=== PATIENT | female | born 1970 | race Caucasian/White ===

== ENCOUNTER 2016-07-16 17:49 | Inpatient (IN) | payer BC ==
[~2016-07-16] VITALS: Ht 170.2 cm; Wt 70.5 kg
--- NOTE | ~2016-07-16 | CATH ---
Cardiac Diagnostic Report Demographics Patient Name FLORIN ARGUETA Gender Female ELDER Date of 1970 Age 46 year(s) Patient Number [id number] Date of Study 07/17/2016 Visit Number [id number] Room Number 420 Corporate ID Ht 170.18 cm Wt 70.31 kg Accession Number [id number] BSA 1.81 m kg/m Referring Víctor Paredes Primary Physician Physician MD [place] Performing Fabio GARCIA Secondary Physician Physician [place] Diagnostic Fabio GARCIA Assisting Physician Physician [place] Interventional Fabio GARCIA Physician Printing Manager Physician Guanakito Findings and Conclusions Diagnostic Findings and Conclusion Non-obstructive coronary artery disease. Diagnostic Recommendations Medical management and risk factor modification. Procedure Description The patient was brought to the diagnostic cardiac catheterization laboratory in the fasting, non-sedated state. Informed consent was obtained in the written and verbal form after the risks and benefits were explained. The patient had no further questions and agreed to proceed. The planned puncture-incision site(s) were clipped and prepped with ChloraPrep and draped in the usual sterile manner. Conscious sedation, supplemental oxygen, and pain control medications were delivered by a registered nurse under physician guidance. Surface ECG rhythm, blood pressure measurement, and pulse oximetry were monitored throughout the procedure. Arterial access. The right radial access site was infiltrated with lidocaine. The vessel was entered with the Seldinger technique. A 6F sheath was advanced into the vessel and used for catheter placement. Selective left coronary angiography. A TIG catheter was advanced into the left coronary vessel ostium under Fluoroscopic guidance. Contrast was injected by hand. Images were obtained in multiple projections. Selective right coronary angiography. A TIG catheter was advanced into the right coronary vessel ostium under fluoroscopic guidance. Contrast was injected by hand. Images were obtained in multiple projections. Left heart catheterization. An angled pigtail catheter was advanced across the aortic valve to the left ventricle under fluoroscopic guidance. Resting hemodynamics were obtained. Hemostasis: The sheath was removed and a TR Band was placed. Hemostasis was achieved. The patient was transferred to a regular nursing floor via cart accompanied by a nurse. The patient left the laboratory in stable condition. Procedure Procedure Type Diagnostic procedure:Angiography:, Coronary Angios w/C Indications: Non-ST elevation SD, Hypertension and Tobacco use-current. The procedure was explained in detail to the patient. Risks, complications and alternative treatments were reviewed. Written consent was obtained. Medications Reviewed with Patient prior to Procedure. Complications: No Complication. Angiographic Findings Dominance: Right Cardiac Arteries and Lesion Findings LMCA: Normal (0% Stenosis). LAD: Abnormal. Lesion on Prox LAD: 10% stenosis . Lesion on Mid LAD: 20% stenosis . LCx: Normal (0% Stenosis). RCA: Normal (0% Stenosis). Coronary Tree Procedure Data Procedure Date Date: 07/17/2016Start: 01:15 PMEnd: 01:41 PM Entry Locations - Percutaneous access was performed through the Right Radial artery (Primary location). A 6 Fr sheath was inserted. Hemostasis was successfully obtained using a TR band. Procedure Medications Order and Administration + + +-------+-------+ !Time !Medication !Dosage !Route ! + + +-------+-------+ !07/17/2016 !Versed !1 mg !I.V. ! !01:02 PM ! ! ! ! + + +-------+-------+ !07/17/2016 !Fentanyl !50 mcg !I.V. ! !01:02 PM ! ! ! ! + + +-------+-------+ !07/17/2016 !Sodium Chloride !10 ml !I.V. ! !01:02 PM ! ! ! ! + + +-------+-------+ !07/17/2016 !Versed !1 mg !I.V. ! !01:13 PM ! ! ! ! + + +-------+-------+ 07/17/2016 !Fentanyl !50 mcg !I.V. ! !01:14 PM ! ! ! ! + + +-------+-------+ 07/17/2016 !SF Radial Cocktail: 200mcg Nitro, 2.5 mg ! !I.A. ! !01:17 PM !Verapamil, 5000u Heparin ! ! ! + + +-------+-------+ 07/17/2016 !Plavix (ACC_8) !300 mg !P.O. ! !01:36 PM ! ! ! ! + + +-------+-------+ Devices Used - A6 Fr6F TIG CATHETERwas used for:BilateralCoronary Angios. - A6 FrCATH 6FR PIG 145 110CM CATHETERwas used for:LeftsideLV Pressures. Contrast Material - Isovue 17182 ml Fluoroscopy Time: Diagnostic: 2:12 minutes. Total: 2:12 minutes. Fluoroscopy Dose: Diagnostic: 188 mGy. Total: 188 mGy. Estimated Blood Loss: 6 ml. Medical History Allergies - Codiene. - Other:(lortab). Risk Factors The patient risk factors include:treated hypertension, last creatinine: 1 mg/dl, creatinine clearance: 78.02 ml/min and Current/Recent(w/in 1 year) tobacco use. Admission Data Admission Date: 07/16/2016 Admission Time: 05:49 PM Insurance Payors: Private health insurance. Clinical Evaluation Leading to Procedure Diagnosed on 07/16/2016 06:40 PM. - The patient's CAD presentation was assessed as: Non-STEMI. Hemodynamics Condition: Rest O2 Consumption: Estimated: 174.48Heart Rate: 62 bpm Pressures (mmHg) +-----+ + !Site !Pressure ! +-----+ + !AO !84/54 (70) ! +-----+ + !LV !90/2 ,8 ! +-----+ + !AO !101/65 (83) ! +-----+ + !LV !91/2 ,7 ! +-----+ + Valve Gradients and Areas + +---------+---------+---------+ +---------+ + !Valve !Peak !Mean !Area !Index !Flow !Source ! + +---------+---------+---------+ +---------+ + !Aortic !0 !0 ! ! ! ! ! + +---------+---------+---------+ +---------+ + !Aortic !0 !0 ! ! ! ! ! + +---------+---------+---------+ +---------+ + Shunts Oxygen Values O2 Capacity 184.96 O2 Consumption 174.48 Discharge Data Discharge Date: 07/17/2016 Hospital Status: Inpatient Signatures
--- NOTE | ~2016-07-16 | FD ---
ADMIT: 07/16/2016 RM/LOC: 420 [facility] MR#: [id number] [address] [facility] [address] KENDALL CATHERINE [address] [place] [address] Final Diagnosis SEX: F AGE: 46 : 1970 ADMISSION DATE: 07/16/2016 DISCHARGE DATE: 07/17/2016 Rosie Monsivais RN, scribing for Dr. Richmond Renee. REASON FOR ADMISSION: Non-ST elevated SD. PROCEDURES PERFORMED: 1. On 07/17/[address] Guanakito Mccarthy, left heart catheterization with selective coronary angiography. 2. Echocardiogram on 07/17/2016, ejection fraction 55% with focal apical hypokinesis. FINAL DIAGNOSES: 1. Non-ST elevated myocardial infarction. 2. Tobacco use. 3. Hypertension. 4. Anxiety. 5. Nonobstructive coronary disease. Rosie Monsivais RN / Richmond Renee MD / modl JOB #: [id number] CC: Richmond Renee MD, Attending Physician Julius Beltran MD, Family Physician
--- NOTE | ~2016-07-16 | ECH ---
Transthoracic Echocardiography Report (TTE) Demographics Patient Name KENDALL CATHERINE Date of Study 07/17/2016 ELDER Patient Number [id number] Visit Number [id number] Date of 1970 Room Number 420 Gender Female Number Age 46 year(s) Referring Víctor Paredes MD College Instructor Darline Brock [facility] Physician Physician Interpreting Víctor Paredes Lunchroom Aide Physician MD Supervising Ordering Víctor Paredes MD/MLP Physician Nurse Stress Alcohol Rubber Conclusions Summary Technically good exam. The estimated left ventricular ejection fraction is 55%. Focal apical hypokinesis. Mild prolapse of the anterior mitral valve leaflet(s). Mild posteriorly directed mitral regurgitation by color Doppler. Procedure Type of Study TTE procedure:Echo Complete SF. Procedure Date Date: 07/17/2016 Start: 08:28 AM Technical Quality: Good visualization Indications:Chest pain and Hypertension. Additional Indications:NSTEMI Appropriate Use Criteria: 9 Height: 67 inches Weight: 155 pounds BSA: 1.81 m Rhythm: NSR HR: 63 bpm BP: 115/72 mmHg Allergies - Codiene. - Other:(lortab). M-Mode/2D Measurements LV Diastolic Dimension: 4.84 cm LV Systolic Dimension: 2.77 cm LV Septum Diastolic: 0.83 cm LV PW Diastolic: 0.78 cm AO Root Dimension: 3.27 cm Cardiac Output: 4.64 l/min LA Dimension: 2.79 cm Cardiac Index: 2.56 l/min*m RV Diastolic Dimension: 3.38 cm LA volume index: 29 ml/m LVOT: 1.98 cm LVOT VTI: 23.91 cm RV Base: 3 cm LV Stroke volume: 73.58 ml RV Mid: 1.7 cm LV Stroke volume index: 40.65 ml/m TAPSE: 2.1 cm TDI-S': 12 cm/s Doppler Measurements AV Peak Velocity: 1.3 m/s MV Peak E-Wave: 0.81 m/s AV Peak Gradient: 6.76 mmHg MV Peak A-Wave: 0.5 m/s AV Mean Gradient: 4.11 mmHg MV E/A Ratio: 1.63 LVOT Peak Velocity: 0.99 m/s MV P1/2t: 64.1 msec AV Area (Continuity):2.42 cm MV Deceleration Time: 219.6 msec TR Velocity:2.41 m/s MV Area (PHT): 3.43 cm TR Gradient:23.23 mmHg PV Peak Velocity: 0.72 m/s Estimated RAP:3 mmHg PV Peak Gradient: 2.09 mmHg Estimated RVSP: 26 mmHg Estimated PASP: 26.23 mmHg E' Septal Velocity: 0.1 m/s A' Septal Velocity: 0.09 m/s E' Lateral Velocity: 0.11 m/s A' Lateral Velocity: 0.1 m/s RA Area: 11.55 cm Findings Left Ventricle Normal left ventricle size and function. Diastolic assessment reveals normal relaxation. Right Ventricle Normal right ventricle structure and function. Left Atrium Normal left atrial size. Right Atrium Normal right atrial size. Mitral Valve Mild prolapse of the anterior mitral valve leaflet(s). Mild posteriorly directed mitral regurgitation by color Doppler. Aortic Valve Normal aortic valve structure and function. Tricuspid Valve Normal tricuspid valve structure and function. Mild tricuspid regurgitation by color Doppler. Normal pulmonary pressures. Pulmonic Valve Normal pulmonic valve structure and function. Pericardial Effusion No evidence of pericardial effusion. Miscellaneous Visualized portions of the aortic root and ascending aorta appear normal in size. Pleural Effusion No evidence of pleural effusion. Contractility Score LV regional wall motion:(0-Non visualized 1-Normal 2-Hypokinesis 3-Akinesis 4-Dyskinesis 5-Aneurysm) Signature
[2016-07-18] MEDS ORDERED: LEXAPRO DPS20 MG PO (16:19)
[2016-07-18] MEDS ORDERED: ZESTRIL DPS20 MG PO (16:19)
[2016-07-18] MEDS ORDERED: TOPROL XL DPS50 MG PO (16:19)
[2016-07-18] MEDS ORDERED: ATIVAN-DPS0.5 MG PO (16:19)
[2016-07-18] MEDS ORDERED: LIPITOR40 MG PO (16:20)
[2016-07-18] MEDS ORDERED: IMDUR DPS30 MG PO (16:20)
[2016-07-18] MEDS ORDERED: PLAVIX75 MG PO (16:20)
[2016-07-18] MEDS ORDERED: ASPIRIN EC81 MG PO (16:20)
--- NOTE | 2016-08-06 14:23 | HP ---
ADMIT: 07/16/2016 RM/LOC: 420 [facility] MR#: [id number] [address] [facility] [address] [place], [place] [address] KENDALL CATHERINE [address] [place] [address] History and Physical SEX: F AGE: 46 : 1970 Corrected: 07/17/2016 0903 njv DATE OF SERVICE: 07/16/2016 FELICIA Benjamin, dictating for Richmond Renee MD. HISTORY OF PRESENT ILLNESS: Ms. Catherine is a 46-year-old female, consulting Cardiology for non-STEMI. The patient has no cardiac history. The patient is a lifetime smoker. The patient has a personal history of hypertension and anxiety. The patient states that today started as a typical day. She got ready and started putting on her makeup when she developed a sharp, severe substernal chest pain that then radiated to her right shoulder and down her right arm into her fingers. The patient rated the pain a 10/10. She also admitted tingling in her jaw. Associated symptoms included nausea, vomiting, lightheadedness, and cold sweats. She then called her daughter and was taken to the emergency room. While at ER, her EKG demonstrated non-specific ST changes. Her initial troponin level was less than 0.015. During her time in the ER, she was administered nitroglycerin, aspirin, and oxygen. The patient states that this relieved her chest pain. A little time later, a second troponin level was taken and this level was elevated at 3.28. Her CK-MB was also elevated at 6.4. The patient admits that she has never had anything like this in the past. She did admit to feeling under the weather for about a week. PAST MEDICAL HISTORY: Significant for anxiety, hypertension, tobacco use. PAST SURGICAL HISTORY: Significant for hip dysplasia, hernia in 1953, analisa in her knee in 1982, foot surgery in 2001, neck infection in January 2016, and tubal ligation in 1998. FAMILY HISTORY: Her paternal grandfather had a CVA and age is unknown. Her paternal grandmother had a CVA around her 50s. Her maternal grandfather had triple bypass. SOCIAL HISTORY: The patient is a resident in [place]. She has a 14-pack- year smoking history. Admits that she has tried to stop smoking with Chantix in the past. Admits to alcohol usage on occasion. The patient is . She currently works for an [employer] and also for a [employer]. She denies having a special diet or drinking caffeine. She also denies drug use. ALLERGIES: CODEINE AND LORTAB. MEDICATIONS: Home medications consist of: 1. Escitalopram 20 mg daily p.o. 2. Lorazepam 0.5 mg one to two tabs q.6 to 8 hours p.r.n. p.o. 3. Metoprolol succinate 25 mg daily p.o. 4. Lisinopril 20 mg daily p.o. ADMIT: 07/16/2016 RM/LOC: 420 [facility] MR#: [id number] [address] [address] KENDALL CATHERINE [address] [place] [address] History and Physical SEX: F AGE: 46 : 1970 REVIEW OF SYSTEMS: GENERAL: The patient tires easily, usually first in the morning and admits to a recent fever, chills, and sweats. The patient denies recent weight loss or gain. EYES: Denies double vision, blurred vision, cataracts, or glaucoma. ENT: Denies hearing loss or problems with nose, mouth or throat. PULMONARY/RESPIRATORY: The patient admits to snoring mildly, waking up at least 3 times at night and tiring first thing in the morning. The patient denies asthma, wheezing, chronic cough, emphysema, bronchitis, or bloody sputum. GASTROINTESTINAL: Denies heartburn or difficulty swallowing. No change in bowel habits. Denies dark or bloody stools. No history of ulcers, hiatal hernia, or gallbladder or liver disease. GENITOURINARY: Denies dysuria, hematuria, nocturia, urinary tract infection, or kidney stones. Denies history of renal insufficiency or failure. MUSCULOSKELETAL: Denies history of arthritis or gout. Denies muscle or joint pains. ENDOCRINE: Denies history of thyroid dysfunction or diabetes. HEMATOLOGIC/LYMPHATIC: The patient admits to bleeding problems resulting in easy bruising. The patient denies anemia or cancer. NEUROLOGIC: The patient admits to numbness and tingling, but denies chronic headaches, stroke, or seizure disorder. PSYCHIATRIC: The patient admits to anxiety, but denies depression or any other mental illness. PHYSICAL EXAMINATION: Per Dr. Williams Renee. VITAL SIGNS: Temperature 97.9, pulse 60, respirations 16, blood pressure 126/88, oxygen is 99% on room air, weight is 155 pounds. GENERAL: The patient is in no acute distress, but has mild dull substernal pain. The patient is alert and oriented x3. SKIN: [place], warm, and dry. EYES: Sclerae clear. No xanthelasmas. ENT: Oral mucosa is pink and moist. No jugular venous distention or carotid bruits. CHEST: Respirations are even and unlabored. Lungs are clear to auscultation. HEART: Regular rate and rhythm. Normal S1, S2. No murmurs, rubs or gallops. ABDOMEN: Soft and nontender. MUSCULOSKELETAL: Gait is normal. EXTREMITIES: Peripheral pulses palpable. No clubbing, cyanosis or edema. PSYCHIATRIC: Alert and oriented. Mood and affect are appropriate. DIAGNOSTIC DATA: Sodium 137, potassium 3.9, chloride 102, bicarb 18.5, BUN is 18, creatinine is 0.98, glucose is 132. White blood cell count is 5.52, hemoglobin is 14.1, hematocrit is 41.1, and platelets are 339. PT is 0.86, PTT is 25. Last troponin was 3.281, and CK-MB was 6.4. Chest x-ray revealed no significant interval changes. Last EKG revealed a sinus rhythm with borderline T-wave inversion in the anterior leads. ADMIT: 07/16/2016 RM/LOC: 420 [facility] MR#: [id number] [address] [address] KENDALL CATHERINE [address] [place] [address] History and Physical SEX: F AGE: 46 : 1970 ASSESSMENT: Per Dr. Williams Renee. 1. Elq-JG-hbfmirf elevation-acute coronary syndrome. 2. Hypertension. 3. History of anxiety. 4. Tobacco abuse. 5. High-risk features with significant risk factors. PLAN: Plan for coronary angiogram in the morning after an echocardiogram. At this time, we will start the patient on heparin, aspirin, beta-yaneli, and statin therapy. Risks and benefits of the heart catheterization were discussed. Risks including, but not limited to, bleeding and vascular trauma, SD, stroke, renal failure, and even a small risk of . We also discussed smoking cessation. Thank you for the Cardiology consult. I have read and agreed with the documentation that has been completed regarding this visit. By signing this record, I attest that the documentation was completed in my physical presence and is an accurate record of the encounter. ANTHONY Benjamin Student / Richmond Renee MD / jayna JOB #: [id number] CC: Richmond Renee, Attending Physician Julius Beltran, Family Physician Corrected: 07/17/2016 0903 njv
[2016-12-18] MEDS ORDERED: SERTRALINE HCL50 MG PO (15:04)
[2016-12-18] MEDS ORDERED: VITAMIN B-121000 MCG PO (15:04)
[2016-12-18] MEDS ORDERED: FOLVITE-DPS1 MG PO (15:05)
[2016-12-18] MEDS ORDERED: MYSOLINE50 MG PO (15:05)
[2016-12-18] MEDS ORDERED: MIRALAX PACKET17 GM PO (15:06)
[2016-12-18] MEDS ORDERED: VITAMIN B-1100 MG PO (15:06)
[2016-12-18] MEDS ORDERED: MAG-OX400 MG PO (15:06)
[2016-12-18] MEDS ORDERED: COLACE-DPS100 MG PO (15:07)
[2016-12-18] MEDS ORDERED: TYLENOL325 MG PO (15:07)
[2016-12-18] MEDS ORDERED: MAALOX DPS30 ML PO (15:07)
[2016-12-18] MEDS ORDERED: FEOSOL-DPS325 MG PO (15:08)
[2016-12-18] MEDS ORDERED: CARAFATE DPS1 GM PO (15:08)
[2016-12-18] MEDS ORDERED: PRILOSEC DPS20 MG PO (15:08)
[2016-12-18] MEDS ORDERED: DAILY MULTIPLE1 EAC1 PO (15:11)
== END 2016-07-17 17:42 | disposition home or self-care (01) | DRG 282 ==
LOC: 4PCU 17:49
PROVIDERS: ADMIT Internal Medicine
DX: I21.4 Non-ST elevation (NSTEMI) myocardial infarction (principal); I25.10 Atherosclerotic heart disease of native coronary artery without angina pectoris; I10 Essential (primary) hypertension; F41.9 Anxiety disorder, unspecified; F17.210 Nicotine dependence, cigarettes, uncomplicated

== ENCOUNTER 2016-12-13 19:41 | Observation (INO) | payer SELFPAY ==
[~2016-12-13 19:41] MED LIST: ASPIRIN EC81 MG PO; ATIVAN-DPS0.5 MG PO; IMDUR DPS30 MG PO; LEXAPRO DPS20 MG PO; LIPITOR40 MG PO; PLAVIX75 MG PO; TOPROL XL DPS50 MG PO; ZESTRIL DPS20 MG PO
[2016-12-18] MEDS ORDERED: SERTRALINE HCL50 MG PO (15:04)
[2016-12-18] MEDS ORDERED: VITAMIN B-121000 MCG PO (15:04)
[2016-12-18] MEDS ORDERED: FOLVITE-DPS1 MG PO (15:05)
[2016-12-18] MEDS ORDERED: MYSOLINE50 MG PO (15:05)
[2016-12-18] MEDS ORDERED: MAG-OX400 MG PO (15:06)
[2016-12-18] MEDS ORDERED: VITAMIN B-1100 MG PO (15:06)
[2016-12-18] MEDS ORDERED: MIRALAX PACKET17 GM PO (15:06)
[2016-12-18] MEDS ORDERED: COLACE-DPS100 MG PO (15:07)
[2016-12-18] MEDS ORDERED: TYLENOL325 MG PO (15:07)
[2016-12-18] MEDS ORDERED: MAALOX DPS30 ML PO (15:07)
[2016-12-18] MEDS ORDERED: PRILOSEC DPS20 MG PO (15:08)
[2016-12-18] MEDS ORDERED: FEOSOL-DPS325 MG PO (15:08)
[2016-12-18] MEDS ORDERED: CARAFATE DPS1 GM PO (15:08)
[2016-12-18] MEDS ORDERED: DAILY MULTIPLE1 EAC1 PO (15:11)
== END 2016-12-17 13:20 | disposition other institution (70) ==
DX: F10.239 Alcohol dependence with withdrawal, unspecified (principal); G25.0 Essential tremor; I21.4 Non-ST elevation (NSTEMI) myocardial infarction; I25.10 Atherosclerotic heart disease of native coronary artery without angina pectoris; F41.9 Anxiety disorder, unspecified; I10 Essential (primary) hypertension; Z88.6 Allergy status to analgesic agent; Z79.899 Other long term (current) drug therapy; Z79.82 Long term (current) use of aspirin; Z79.52 Long term (current) use of systemic steroids; Z98.51 Tubal ligation status; Z87.891 Personal history of nicotine dependence